=== PATIENT | female | born 1950 | race Caucasian/White ===

== ENCOUNTER 2021-02-13 11:28 | Emergency (ER) | payer OTHER ==
[2021-02-13 11:40] VITALS: BMI 24.0
[2021-02-13] MEDS ORDERED: ACETAMINOPHEN 325 MG TABLET (FP) PO ONE (12:21)
[2021-02-13] MEDS ORDERED: ACETAMINOPHEN 325 MG TABLET (FP) ONE (12:26)
[2021-02-13 14:21] VITALS: BP 126/78; PULSE 82; TEMP 98.6
== END 2021-02-13 14:21 | disposition home or self-care (01) ==
LOC: JER 11:28
DX: M79.642 Pain in left hand (principal); M54.2 Cervicalgia
CPT/HCPCS: 72125-TC; 73110-TC-LT-FY; 73130-TC-LT-FY; 99284-25

== ENCOUNTER 2023-09-01 09:57 | Observation (INO) | payer OTHER ==
[2023-09-01 10:03] VITALS: BMI 23.9
[2023-09-01] MEDS ORDERED: MECLIZINE HCL 12.5 MG TABLET PO ONE (11:04)
[2023-09-01] MEDS ORDERED: SODIUM CHLORIDE 0.9% 500 ML INFUS.BAG IV ONE (11:04)
[2023-09-01] MEDS ORDERED: MECLIZINE HCL 12.5 MG TABLET ONE (11:11)
[2023-09-01 11:39] LABS: BASO % 0.9 % (0-2.0); EOS % 1.8 % (0-4.5); HEMATOCRIT 41.2 % (32.4-45.2); HEMOGLOBIN 14.2 GM/dL (10.7-15.3); MCH 30.1 pg (25.7-33.7); MCHC 34.4 g/dl (32.0-36.0); MEAN CELL VOLUME 87.5 fl (80-96); MEAN PLT VOLUME 8.2 fl (7.5-11.1); MONO % 8.2 % (3.8-10.2); NEUT % 52.1 % (42.8-82.8); PLATELET COUNT 246 10^3/uL (134-434); RBC 4.71 M/mm3 (3.60-5.2); WHITE BLOOD COUNT 5.8 K/mm3 (4.0-10.0)
[2023-09-01 11:58] LABS: POTASSIUM 3.8 mmol/L (3.5-5.1)
[2023-09-01 12:00] LABS: CALCIUM 9.4 mg/dL (8.5-10.1)
[2023-09-01 12:01] LABS: ALBUMIN 3.6 g/dl (3.4-5.0); BLOOD UREA NITROGEN 19.2 mg/dL (7-18)
[2023-09-01 12:04] LABS: CREATININE 0.9 mg/dL (0.55-1.3)
[2023-09-01 12:05] LABS: BILIRUBIN,TOTAL 0.5 mg/dL (0.2-1)
[2023-09-01 12:06] LABS: TOT PROT 6.6 g/dl (6.4-8.2)
[2023-09-01] MEDS ORDERED: MECLIZINE HCL 12.5 MG TABLET PO PRN (14:03)
[2023-09-01] MEDS ORDERED: ATORVASTATIN CA 10 MG TABLET (FP) PO SCH ×2 (22:00)
[2023-09-01] MEDS ORDERED: ATORVASTATIN CA 10 MG TABLET (FP) ONE (22:01)
[2023-09-02 04:38] VITALS: TEMP 97.7
[2023-09-02 05:42] LABS: BASO % 0.6 % (0-2.0); EOS % 2.4 % (0-4.5); HEMATOCRIT 41.1 % (32.4-45.2); LYMPH % 36.8 % (8-40); MCH 30.1 pg (25.7-33.7); MEAN CELL VOLUME 88.4 fl (80-96); MEAN PLT VOLUME 8.1 fl (7.5-11.1); MONO % 9.3 % (3.8-10.2); NEUT % 50.9 % (42.8-82.8); PLATELET COUNT 226 10^3/uL (134-434); RBC 4.65 M/mm3 (3.60-5.2); RDW 12.9 % (11.6-15.6); WHITE BLOOD COUNT 5.6 K/mm3 (4.0-10.0)
[2023-09-02 06:03] LABS: POTASSIUM 4.1 mmol/L (3.5-5.1)
[2023-09-02 06:06] LABS: BLOOD UREA NITROGEN 18.5 mg/dL (7-18); CALCIUM 9.5 mg/dL (8.5-10.1)
[2023-09-02 06:10] LABS: CREATININE 1.1 mg/dL (0.55-1.3)
[2023-09-02 16:26] VITALS: BP 136/84; PULSE 74; RESP 18
== END 2023-09-02 16:28 | disposition home or self-care (01) ==
LOC: JER 09:57 → JERBED 13:26
PROVIDERS: ADMIT Internal Medicine; ATTEND Internal Medicine
PROC: 3E0337Z Introduction of Electrolytic and Water Balance Substance into Peripheral Vein, Percutaneous Approach (ICD-10-PCS; principal; 2023-09-01)
DX: E86.0 Dehydration (principal); R42 Dizziness and giddiness; D32.9 Benign neoplasm of meninges, unspecified; I10 Essential (primary) hypertension; E78.5 Hyperlipidemia, unspecified; G45.0 Vertebro-basilar artery syndrome
CPT/HCPCS: 0241U-QW; 36415; 70450-TC; 70552-TC; 71045-TC-FY; 80048; 80053; 83735; 84484; 85025; 93005; 93010; 93880-TC; 96360; 99285-25; G0378